=== PATIENT | male | born 1930 | race African-American/Black ===

== ENCOUNTER 2018-08-29 17:58 | Emergency (ER) | payer OTHER ==
[~2018-08-29 17:58] MED LIST: ARICEPT10 MG PO; BUPROPION; CENTRUM SILVER1 EAC1 PO; CIPROFLOXACIN500 M1 PO; DEPAKENE250 MG PO; EFFEXOR75 MG PO; FOLIC ACID 1 MG1 MG GT; GLUCOPHAGE500 MG PO; PHENERGAN 25 MG25 M1 PO; PRILOSEC; SIMVASTATIN40 MG PO; VITAMIN B-1100 MG PO
== END 2018-08-29 20:00 ==
LOC: ER 17:58
DX: I46.9 Cardiac arrest, cause unspecified (principal); I10 Essential (primary) hypertension; E11.9 Type 2 diabetes mellitus without complications; E78.00 Pure hypercholesterolemia, unspecified; K21.9 Gastro-esophageal reflux disease without esophagitis